=== PATIENT | female | born 1995 | race Hispanic/Latino ===

== ENCOUNTER 2019-07-08 10:24 | Emergency (ER) | payer OTHER ==
[~2019-07-08] VITALS: Ht 172.7 cm; Wt 92.0 kg
[2019-07-08] MEDS ORDERED: PREN29CH2 PO (10:31)
[2019-07-08] MEDS ORDERED: METF500T13 PO (10:32)
[2019-07-08 11:36] LABS: INFLUENZA A AMPLIFICATION NEGATIVE (NEGATIVE); INFLUENZA B AMPLIFICATION POSITIVE (NEGATIVE)
[2019-07-08] MEDS ORDERED: OSEL75CA PO (11:45)
[2019-07-08 11:54] VITALS: BP 116/63
== END 2019-07-08 11:55 | disposition home or self-care (01) ==
LOC: M ED 10:24
DX: O99.513 Diseases of the respiratory system complicating pregnancy, third trimester (principal); J10.1 Influenza due to other identified influenza virus with other respiratory manifestations; O24.419 Gestational diabetes mellitus in pregnancy, unspecified control; Z3A.35 35 weeks gestation of pregnancy; Z79.84 Long term (current) use of oral hypoglycemic drugs; Z79.899 Other long term (current) drug therapy

== ENCOUNTER → 2019-07-15 | Outpatient (REF) | payer OTHER ==
[~2019-07-15] MED LIST: METF500T13 PO; OSEL75CA PO; PREN29CH2 PO
== END ==
LOC: M PLALAB 14:34
PROVIDERS: ATTEND Obstetrics & Gynecology
DX: O24.415 Gestational diabetes mellitus in pregnancy, controlled by oral hypoglycemic drugs (principal); Z3A.00 Weeks of gestation of pregnancy not specified

== ENCOUNTER 2019-07-28 00:36 | Inpatient (IN) | payer OTHER ==
[2019-07-28] VITALS (25 sets, daily range): BP systolic 112–140; BP diastolic 58–87
[~2019-07-28] VITALS: Ht 172.7 cm; Wt 93.0 kg
[2019-07-28] MEDS ORDERED: LACTATED RINGER'S 1000 ML IV STA (05:29)
--- NOTE | 2019-07-28 06:03 | HPEPDOC ---
Obstetrical History & Physical General Date of Admission Jul 28, 2019 at 05:36 Primary Care Physician: KARY MUÑOZ CNM History of Present Illness Patient is a 24-year-old female who is a at 38.4 weeks gestation with an GYPSY of 08/07/19 based off of her LMP and consistent with her first trimester ultrasound. She initiated care in her first trimester with [facility]. Her has been complicated by A2GDM. Her blood sugars have been controlled with metformin 500 mg BID. She presents to L&D with complaints of contractions. She reports active movement. She denies vaginal bleeding or leaking of fluid. Chief Complaint: Contractions, term, Active Labor Information Provided By: Patient Age: 24 : 3 Term: 0 Pre-term: 0 Abortions: 2 Livin Care Care: Good Care Dating Final EDC: Aug 07, 2019 Final EDC by: LMP LMP: Oct 31, 2018 EGA at Admission: 38.4 Antepartum Course Diagnos(e)s A2GDM Height (inches): 68 Pre- weight (lbs.): 180 Admission Weight (lbs.): 205 Change in Weight (lbs.): 25 Past Medical History BREAKER TENDER History: Spontaneous (SAB in 01/2018 and 04/2018) Past Medical History Medical History gestational diabetes; no other current problems Surgical History: Denies/None Family History Significant Family History: Diabetes, Hypertension Social History Marital Status: Family situation: Spouse/partner home Psychosocial History: No pertinent psych hx * Smoker: non-smoker Alcohol: Denies Drugs: denies Abuse Violence Screening Have you been hit/kicked/slapp: No Have you been sexually assault: No Imunizations Influenza Status: declined Allergies Coded Allergies: No Known Allergies (Unverified , 07/08/19) Medications Scheduled Metformin HCl (Metformin HCl) 500 Mg Tablet, 1 TAB PO BID Oseltamivir Phosphate (Tamiflu) 75 Mg Capsule, 1 CAP PO BID No115/Iron/Folic Acid ( 19 Chewable Tablet) 1 Each Tab.chew, 1 TAB PO DAILY Physical Examination Physical Examination GENERAL: Alert and oriented times three. BREAST: . ABDOMEN: Gravid and non-tender to touch. FETUS: Is vertex (VTX) by sterile vaginal examination (SVE), fetus is vertex (VTX) by Hermann. HEART RATE: Regular rate and rhythm. LUNGS: Clear to auscultation (CTA). EXTREMITIES: No edema. No clonus. Deep tendon reflexes (DTRs) + 2. Vital Signs/I&O Vital Signs Date Time Temp Pulse Resp B/P (MAP) Pulse Ox O2 Delivery O2 Flow Rate FiO2 07/28/19 01:25 97.9 71 18 135/78 (97) Laboratory Data Urine Culture: No Growth Pertinent Laboratoy Data Blood Type: B+ RBC Antibody Screen: Negative HIV: Negative Hepatitis B: Negative Hepatitis C: Negative Rapid Plasma Reagin: Nonreactive Rubella: Immune Chlamydia/Gonorrhea: Negative Group B Streptococcus: Negative Glucose Tolerance Test: 159 Anatomy Ultrasound Ultrasound Date: Jul 03, 2019 Placenta Location: Posterior Normal Anatomy: Yes Placenta Previa: No Estimated Weight (grams): 2023 Vaginal Examination Dilation: 4 cm (4-5 cm) Effacement: 90% Station: 0 Cervical Consistency: Soft Cervical Position: Anterior Presentation: Cephalic presentation Position: Vertex (occiput) Assessment Heart Rate (FHR): 130 Variability: Moderate Accelerations: Positive Decelerations: None Tocometer Contractions: Yes Frequency: other (every 2 to 7 minutes) Assessment/Plan Assessment IUP at 38.4 weeks gestation active labor spontaneous rupture of membranes, moderate amount of clear fluid 15 minutes after admission/cervical exam GBS negative Category I FHR tracing Plan Admit to L&D. OOB ad sarah Diet: clears. Group B Streptococcus (GBS) negative. Labs and intravenous (IV) per unit protocol. Anesthesia consult per patient's request. Lactated Ringers (LR): Bolus 500 mL prior to epidural, then at 125 mL/hr after epidural. Anticipate cervical change. C-S as appropriate. KARY MUÑOZ CNM Jul 28, 2019 06:03
[2019-07-28] MEDS ORDERED: FENTANYL 2MCG/ML ROPIVACAINE 0.2% IN 0.9% NACL 100ML IVBAG As Ordered ONE (06:11)
[2019-07-28 06:13] LABS: HEMATOCRIT 41.9 % (36.0-47.0); HEMOGLOBIN 14.3 g/dl (12.0-15.5); MEAN CORPUSCULAR HEMOGLOBIN 29.3 pg (27.0-33.0); MEAN CORPUSCULAR HGB CONC 34.1 g/dl (32.0-36.5); MEAN CORPUSCULAR VOLUME 85.9 fl (80.0-96.0); PLATELET COUNT, AUTOMATED 223 10^3/uL (150-450); RED BLOOD COUNT 4.88 10^6/uL (4.00-5.40); WHITE BLOOD COUNT 11.5 10^3/uL (4.0-10.0)
[2019-07-28] MEDS: LR 1,000 ML IV SCH ×2 (06:20→09:35)
[2019-07-28] MEDS ORDERED: ePHEDrine SULFATE 25 MG/5 ML(5MG/ML) SYRINGE IV PRN (08:30)
[2019-07-28] MEDS ORDERED: REFRIGERATOR IV KEYS XX PRN (08:30)
[2019-07-28] MEDS ORDERED: EPIDURAL COMMENT XX SCH (08:30)
[2019-07-28] MEDS ORDERED: FENTANYL/ROPIVACAINE/NACL BAG 100 ML EPIDURAL SCH (08:30)
[2019-07-28] MEDS ORDERED: ONDANSETRON 4MG/2ML VIAL (J2405) IV PRN ×2 (08:30→11:45)
[2019-07-28] MEDS ORDERED: LACTATED RINGER'S 1000 ML IV PRN (08:30)
[2019-07-28] MEDS ORDERED: NALOXONE INJ 0.4 MG/1 ML VIAL (J2310) IV PRN (08:30)
[2019-07-28] MEDS ORDERED: EPIDURAL/PCA KEYS XX PRN (08:30)
[2019-07-28] MEDS ORDERED: diphenhydrAMINE INJ 50MG/ML VIAL (J1200) IV PRN (08:30)
[2019-07-28] MEDS ORDERED: OXYTOCIN 30 UNITS IN 0.9% NaCl 500ML IV BAG (J2590) As Ordered ONE (11:07)
[2019-07-28] MEDS ORDERED: LR 1,000 ML IV SCH (11:45)
[2019-07-28] MEDS ORDERED: ACETAMINOPHEN TAB 650MG DOSE (2X325MG) PO PRN (11:45)
[2019-07-28] MEDS ORDERED: ACETAMINOPHEN 500 MG TAB PO PRN (11:45)
[2019-07-28] MEDS ORDERED: PROMETHAZINE 25 MG TAB PO PRN (11:45)
[2019-07-28] MEDS ORDERED: MEASLES,MUMPS,RUBELLA VACCINE INJ (MMR-II) (90707) SC SCH (11:45)
[2019-07-28] MEDS ORDERED: RHOGAM 300 MCG (1500 IU) INJ (J2790) IM SCH (11:45)
[2019-07-28] MEDS ORDERED: DIBUCAINE 1% OINTMENT 30GM TOP PRN (11:45)
[2019-07-28] MEDS ORDERED: IBUPROFEN 800 MG TAB PO PRN (11:45)
[2019-07-28] MEDS ORDERED: DOCUSATE SODIUM 100 MG CAP PO PRN (11:45)
[2019-07-28] MEDS ORDERED: OXYTOCIN DRIP 30 UNITS in IV 1 EA IV SCH (11:45)
[2019-07-28] MEDS ORDERED: IBUPROFEN 600 MG TAB PO PRN (11:45)
[2019-07-29 05:48] VITALS: BP 118/64
[2019-07-29] MEDS ORDERED: IBUP80TA PO (08:24)
[2019-07-29] MEDS: PRENATAL VITAMINS CHEWABLE TABLET PO SCH (08:59)
[2019-07-29 18:00] VITALS: BP 122/76
[2019-07-30 06:00] VITALS: BP 121/73
[2019-07-30 06:04] VITALS: BP 113/65
[2019-07-30] MEDS: PRENATAL VITAMINS CHEWABLE TABLET PO SCH (09:06)
== END 2019-07-30 11:15 | disposition home or self-care (01) | DRG 560 ==
LOC: M LDO 00:36 → M OBS 05:36 → M LDI 06:05 → M OBS 13:52
PROVIDERS: ADMIT Advanced Practice Midwife; ATTEND Obstetrics & Gynecology
PROC: 10E0XZZ Delivery of Products of Conception, External Approach (ICD-10-PCS; principal; 2019-07-28)
PROC: 10907ZC Drainage of Amniotic Fluid, Therapeutic from Products of Conception, Via Natural or Artificial Opening (ICD-10-PCS; 2019-07-28)
DX: O24.424 Gestational diabetes mellitus in childbirth, insulin controlled (principal); Z3A.38 38 weeks gestation of pregnancy; Z37.0 Single live birth